=== PATIENT | male | born 1985 | race African-American/Black ===

== ENCOUNTER 2025-05-02 10:41 | Emergency (ER) | payer SELFPAY ==
[2025-05-02] VITALS (13 sets, daily range): BP systolic 109–124; BP diastolic 60–92; BMI 19.3
--- NOTE | 2025-05-02 12:53 | ED.GENMED ---
History of Present Illness
General
Chief Complaint: Overdose Unintentional
Source: patient and police
Exam Limitations: altered mental status
Time Seen by Provider: 05/02/25 12:34
Nursing documentation reviewed up to this point in time: agreed with
History of Present Illness
History of Present Illness:
39-year-old male with police found outside a car dealership sleeping with a crack pipe initial thought was that he overdosed, although he became arousable here he is resting easily arousable follows commands pupils are 3-4 OU
Past History
Social History
Drug: Cocaine
Review of Systems
Review of Systems
Unable to obtain full review of systems at this time due to: other (Poor historian history from patient and from superintendent police)
All Other Systems: Not applicable
Phy Exam
Physical Exam
Physical Exam:
Physical Exam
General: 39 -[place] male resting stable vital signs follow simple commands
Neck: Pupils 3-4 OU
Heart: Regular
Lungs: no acute respiratory distress.
Neuro: Eyes open to voice moves all extremities
Skin: no rash
Psychiatric: Flat affect
Extremities: no edema.
Course
Orders/Labs/Results
Orders:
Orders
05/02/25 12:47
Bedside Glucose- Treatment ONCE
05/02/25 19:34
Case Management Consult ONCE
Case Management Consult: Discharge Planning
Abnormal Lab Results
05/02/25
13:10
POC Glucose 103 H mg/dl
(70-99)
Vital Signs
Initial and Last Documented VS:
Initial Vital Signs
Temp Pulse Resp BP Pulse Ox
97.7 F 60 16 117/75 100
05/02/25 10:47 05/02/25 10:47 05/02/25 10:47 05/02/25 10:47 05/02/25 10:47
Last Documented Vital Signs
Temp Pulse Resp BP Pulse Ox
97.7 F 47 10 118/81 98
05/02/25 10:47 05/02/25 19:15 05/02/25 19:15 05/02/25 19:14 05/02/25 18:08
MDM/Problems Addressed
Differential Diagnosis Includes:
Dehydration congestion homelessness
MDM/Problems Addressed:
Drug use
*Pulse Oximetry
SaO2: 100
Oxygen Mode of Delivery: Room air
Patient hypoxic: no
*Critical Care Note
Total Time (30-74mins, 75-104mins- exclusive of procedures): Not Applicable
Update Note
Update Note:
Patient overall looks well no overt signs of trauma moves all extremities we will check his sugar, let him eat or drink I would like to let him wake up a little bit more here and he will go on police custody
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
7 PM patient apparently no longer in police custody the police left patient has woken up in the dinner tray and fall back asleep
Will ask case management to see
ED Attending Note
-
Portions of this chart may have been created with voice recognition software.� Occasional wrong word or��sound alike� substitutions may have occurred due to the inherent limitations of voice recognition software.
Discharge Plan
Departure
Referrals:
UNKNOWN - PT NOT,INTERVIEWE [Family Provider]
Interventions
Interventions:
*Risk Screen - Suicide Last Done: 05/02/25 10:51
*General Assessment Last Done: 05/02/25 10:51
*Neglect/Abuse Screening Last Done: 05/02/25 10:51
*ED- Fall Risk Assessment Last Done: 05/02/25 10:51
*ED COVID-19 Vaccine History Last Done: 05/02/25 10:51
ED- Cardiac Assessment Last Done: 05/02/25 10:51
ED- Neurological Assessment Last Done: 05/02/25 10:51
ED-Psychological Assessment Last Done: 05/02/25 10:51
ED- Pulmonary Assessment Last Done: 05/02/25 10:51
Discharge Date and Time
Print Language: SINHALA
[2025-05-02 13:11] LABS: Glucose - Point of Care 103 mg/dl (70-99)
[2025-05-03] VITALS (7 sets, daily range): BP systolic 105–119; BP diastolic 63–84
--- NOTE | 2025-05-03 09:06 | CM ---
Consult received, met with pt bedside in ED. Pt states he has been living [address] in [place] and wants to get back there. Declined penitentiary or any other assistance. Pt given $11.00 from [employer] to take [employer] [place] [address] [facility]
and then train to [place]. I walked him out to the DART stop. RN Anne aware.
== END 2025-05-03 09:40 | disposition home or self-care (01) ==
LOC: EMR 10:41
PROVIDERS: EMERGENCY PHYSICIAN Emergency Medicine
DX: F14.90 Cocaine use, unspecified, uncomplicated (principal)
CPT/HCPCS: 99283; 82962